=== PATIENT | male | born 1975 | race Two or more races ===

== ENCOUNTER 2021-06-20 03:48 | Emergency (ER) | payer OTHER ==
[2021-06-20] MEDS ORDERED: Diphtheria,Pertussis(Acell),Tetanus Vaccine 0.5 ML Syringe IM ONE (04:04)
[2021-06-20] MEDS ORDERED: Lidocaine 1% 10 ML MDV INJECT ONE (04:04)
--- NOTE | 2021-06-20 04:08 | EDM.PDOC ---
ED HPI GENERAL MEDICAL PROBLEM - General Chief Complaint: Laceration Stated Complaint: RIGHT INDEX FINGER INJURY Time Seen by Provider: 06/20/21 03:49 - History of Present Illness INITIAL COMMENTS - FREE TEXT/NARRATIVE: 45-year-old male no relevant past medical history presents immediately after a crush injury at work. Patient was at work and a section of pipe fell onto the proximal phalanx of his right index finger. He is right-handed. He cannot recall his last tetanus. He states he is able to move it some. He denies any other injury. Pain is moderate. Left Finger-Index Pain Score (Numeric/FACES): 9 - Related Data Allergies Allergy/AdvReac Type Severity Reaction Status Date / Time No Known Allergies Allergy Verified 06/20/21 04:03 Home Meds: Home Meds . [No Known Home Meds] 06/20/21 [History] ED ROS GENERAL - Review of Systems Review Of Systems: See Below Free Text/Narrative/Comment: General: No fever. Musculoskeletal: Per HPI Neurologic: No headache. ED EXAM, SKIN/RASH Exam: See Below Text/Narrative:: General Appearance: No acute distress, appears comfortable Skin: No rash HEENT: Normocephalic/atraumatic, sclera anicteric, mucous membranes moist Musculoskeletal: 2+ right radial pulse clear shortening and deformity of the proximal phalanx of the right index finger distal digit is neurovascularly intact no subungual hematoma there is a 2 cm laceration over the area of suspected fracture on the dorsal aspect of the right index finger. Tendon exam appears intact on initial assessment Neurologic: Awake, alert, no obvious deficits, moving all extremities Psychiatric: Appropriate, cooperative ED SKIN PROCEDURES - Additional/Other Procedure(s) Other (Free Text) Procedure(s): Laceration Repair Procedure Location: Right index finger Length: 1.5 cm Suture size and type: 5-0 nylon Number of sutures: 4 Complexity: Simple Time out: Yes, confirmed patient, place, procedure correct Consent: Verbal Suture technique: Simple interrupted Procedure: The wound was irrigated copiously with normal saline mixed with Betadine under pressure. Close inspection revealed no evidence for retained foreign bodies and no tendon violation. Anesthesia was achieved using lidocaine without epinephrine. Sutures were placed using the above technique with approximation of the wound edges. Sterile dressing was applied to the closed wound. Complications: None Performed by: Bret Love MD Closed reduction of fractured second proximal phalanx: Traction countertraction was used to pull the finger out to length finger was then splinted with a metal finger splint that had been well-padded along the palmar aspect of the finger extending into the mid hand patient tolerated the procedure well the digit was neurovascularly intact following the procedure Course - Vital Signs Last Recorded V/S: Last Vital Signs Temp 97.5 F 06/20/21 04:00 Pulse 79 06/20/21 04:00 Resp 20 06/20/21 04:00 BP 126/58 L 06/20/21 04:00 Pulse Ox 95 06/20/21 04:00 - Orders/Labs/Meds Orders: Active Orders 24 hr Category Date Time Status Vaccines to be Administered [RC] PER UNIT ROUTINE Care 06/20/21 04:04 Active Meds: Medications Discontinued Medications Generic Name Dose Route Start Last Admin Trade Name Freq PRN Reason Stop Dose Admin Diphtheria/Tetanus/Acell Pertussis 0.5 ml 06/20/21 04:04 06/20/21 04:19 Diphtheria,Pertussis(Acell),Tetanus Vaccine 0.5 Ml Syringe IM 06/20/21 04:05 0.5 ml .ONCE ONE Administration Ceftriaxone Sodium 1 gm/ 4 mls @ 4 mls/sec 06/20/21 04:28 06/20/21 04:40 Lidocaine HCl IM 06/20/21 04:29 4 mls/sec ONETIME ONE Administration Lidocaine HCl 10 ml 06/20/21 04:04 06/20/21 04:21 Lidocaine 1% 10 Ml Mdv INJECT 06/20/21 04:05 Not Given ONETIME ONE Lidocaine HCl 10 ml 06/20/21 04:09 06/20/21 04:20 Lidocaine 1% 5 Ml Sdv INJECT 06/20/21 04:10 10 ml ONETIME ONE Administration Departure - Departure Time of Disposition: 05:12 Disposition: Home, Self-Care 01 Condition: Good Clinical Impression: Finger fracture, right, Finger laceration - Discharge Information *PRESCRIPTION DRUG MONITORING PROGRAM REVIEWED*: Not Applicable *COPY OF PRESCRIPTION DRUG MONITORING REPORT IN PATIENT VINAYAK: Not Applicable Instructions: Finger Fracture, Adult Forms: ED Department Discharge Additional Instructions: It is very important that you were seen by the hand surgeon in [place] later today. I would plan to be in [place] this morning. I recommend starting to call the clinic at around 8 AM. The contact information is listed below. The surgeon who I spoke to is named Dr. Amin. Dr. Amin [phone] [place], [place] [address] [place] [address] Please keep the dressing in place until he was seen by the hand surgeon. The following information is given to patients seen in the emergency department who are being discharged to home. This information is to outline your options for follow-up care. We provide all patients seen in our emergency department with a follow-up referral. The need for follow-up, as well as the timing and circumstances, are variable depending upon the specifics of your emergency department visit. If you don't have a primary care physician on staff, we will provide you with a referral. We always advise you to contact your personal physician following an emergency department visit to inform them of the circumstance of the visit and for follow-up with them and/or the need for any referrals to a consulting specialist. The emergency department will also refer you to a specialist when appropriate. This referral assures that you have the opportunity for follow-up care with a specialist. All of these measure are taken in an effort to provide you with optimal care, which includes your follow-up. Under all circumstances we always encourage you to contact your private physician who remains a resource for coordinating your care. When calling for follow-up care, please make the office aware that this follow-up is from your recent emergency room visit. If for any reason you are refused follow-up, please contact the [facility] Emergency Department at and asked to speak to the emergency department charge nurse. Sepsis Event Note (ED) - Evaluation Sepsis Screening Result: No Definite Risk - Focused Exam Vital Signs: Vital Signs Temp Pulse Resp BP Pulse Ox 06/20/21 04:00 97.5 F 79 20 126/58 L 95 - My Orders Last 24 Hours: My Active Orders 06/20/21 04:04 Vaccines to be Administered [RC] PER UNIT ROUTINE - Assessment/Plan Last 24 Hours: My Active Orders 06/20/21 04:04 Vaccines to be Administered [RC] PER UNIT ROUTINE Assessment:: 45-year-old male presents with crush injury to the right index finger I suspect open fracture x-rays pending we will perform digital block irrigate copiously with sterile saline and Betadine and will likely need to discuss with hand surgery regarding follow-up. 0510: Patient discussed in full with Dr. Amin the hand surgeon in [facility]. Agrees with plan for manual reduction with splinting and repair recommends coverage with ceftriaxone followed by Keflex. The patient will be seen by the hand surgeon in clinic later today. The importance of following up with a hand surgeon this morning was discussed and understood the patient's boss is committed to getting the patient up to the hand surgery clinic in [place]. Relevant address and phone numbers been provided. My encounter was conducted with an audio sign language interpreter
[2021-06-20] MEDS ORDERED: cefTRIAXone 1 GM in Lidocaine 1% 4 ML IM ONE (04:28)
--- NOTE | 2021-06-20 04:28 | CR ---
Indication: Injury and pain Technique: Right 2nd finger 3 views Comparison: None Findings/Impression: Bones: Acute minimally comminuted and angulated fractures present of the proximal phalanx of the right 2nd finger. No other osseous abnormality. Joint spaces: Unremarkable. Soft tissues: Soft tissue injury and swelling adjacent to the fracture. Dictated by Nakul Meadows MD @ 06/20/2021 4:27:[address] Nakul Meadows @ Jun 20 2021 4:27AM
== END 2021-06-20 05:24 | disposition home or self-care (01) ==
LOC: MW.ED 03:48
DX: S62.610A Displaced fracture of proximal phalanx of right index finger, initial encounter for closed fracture (principal); Z23 Encounter for immunization; W23.0XXA Caught, crushed, jammed, or pinched between moving objects, initial encounter; Y99.0 Civilian activity done for income or pay
CPT/HCPCS: 12001; 26725; 73140; 90471; 90715; 96372; 99283; J0696

== ENCOUNTER 2021-10-10 17:11 | Emergency (ER) | payer SELFPAY ==
[2021-10-10] MEDS ORDERED: Alum Hydro/Mag Hydro/Simeth XS 15 ML, Metoclopramide 5 MG, Lidocaine 2% 5 ML PO ONE ×3 (17:19)
--- NOTE | 2021-10-10 17:23 | EDM.PDOC ---
ED HPI GENERAL MEDICAL PROBLEM - General Chief Complaint: Respiratory Problem Stated Complaint: COVID POS, DIFFICULTY BREATHING Time Seen by Provider: 10/10/21 17:11 Source of Information: Reports: Patient History Limitations: Reports: No Limitations - History of Present Illness INITIAL COMMENTS - FREE TEXT/NARRATIVE: HISTORY AND PHYSICAL: History of present illness: Patient is a 46-year-old male who presents to the emergency room body aches, epigastric pain, cough and shortness of breath x3 days. He was diagnosed with COVID-19 2 days ago. Patient denies any fever, chills, headache, change in vision, syncope or near syncope. Denies any chest pain, back pain, nausea, vomiting, diarrhea, constipation or dysuria. Has not noted any blood in urine or stool. Patient has been eating and drinking appropriately. Patient states he has history of pneumonia and pre-diabetes. Review of systems: As per history of present illness and below otherwise all systems reviewed and negative. Past medical history: As per history of present illness and as reviewed below otherwise noncontributory. Surgical history: As per history of present illness and as reviewed below otherwise noncontributory. Social history: See social history for further information Family history: As per history of present illness and as reviewed below otherwise noncontributory. Physical exam: General: Well developed and well nourished 46 year old male. Alert and orientated x 3. Nontoxic in appearance and in no acute distress. Vital signs are stable and have been reviewed by me. Nursing notes were reviewed. HEENT: Atraumatic, normocephalic, pupils equal and reactive bilaterally, negative for conjunctival pallor or scleral icterus, mucous membranes moist, TMs normal bilaterally, throat clear, neck supple, nontender, trachea midline. No drooling or trismus noted. No meningeal signs. No hot potato voice noted. Lungs: Clear to auscultation bilaterally. No wheezes, rales, or rhonchi. Chest nontender. Normal work of breathing, no accessory muscles used. Heart: S1S2, regular rate and rhythm without overt murmur, gallops, or rubs. No JVD. No peripheral edema Abdomen: Soft, nondistended, nontender. Normoactive bowel sounds. Negative for masses or costovertebral tenderness. Skin: Intact, warm, dry. No lesions or rashes noted. Hematologic: No petechiae or purpra. Mucosa appropriate color and normal nail bed color and refill. Extremities: Atraumatic, moves all extremities per self without difficulty or deficits, negative for cords or calf pain. Neurovascular unremarkable. Neuro: Awake, alert, oriented. Cranial nerves II through XII unremarkable. Cerebellum unremarkable. Motor and sensory unremarkable throughout. Exam nonfocal. Psychiatric: Mood and affect are appropriate. Normal thought process. Answering questions appropriately. Please note that the patient was seen and evaluated during the 2019 SARS-CoV-2 novel coronavirus pandemic period. Community viral transmission is ongoing at time of this encounter and the emergency department is operating under pandemic response procedures. Medical Decision Making: Patient is a 46-year-old male with known COVID-19 who presents to the emergency room with complaints of epigastric pain, shortness of breath and cough. Patient states he has a history of pneumonia and is concerned he may have it concurrently with his COVID-19 diagnosis. Patient's lab work is unremarkable. Chest x-ray shows no acute findings. His oxygen saturation has been above 97% on room air. EKG is within normal limits and no concern for STEMI. Patient did feel improved after the GI cocktail. Symptoms are likely due to his recent COVID-19 diagnosis. I have talked with the patient about today's findings, in addition to providing specific details for plan of care. Reassessment at the time of disposition demonstrates that the patient is in no acute distress. The patient is stable for discharge, counseling was provided and we discussed in great detail signs and symptoms that would prompt them to return to the Emergency Department. Medication, follow up and supportive care measures were reviewed and discussed. Voices understanding and is agreeable to plan of care. Denies any further questions or concerns at this time. Diagnostics: CBC, CMP, Troponin, EKG, CXR Therapeutics: GI cocktail Prescription: None Impression: COVID-19 Plan: 1. You were evaluated today on an emergent basis. Your lab work and Chest X-ray is normal. Symptoms are liklely related to your COVID diagnosis. Your vital signs and oxygen saturation are well enough that you were able to monitor your symptoms at home. Continue to monitor for trouble breathing, new confusion or inability to arouse, bluish lips or face or any of the other symptoms we discussed -if this occurs please return to the emergency room immediately. 2. Please self quarantine until cleared by [facility] Department. Inform any persons that you have been in contact with since you started becoming symptomatic that you have tested positive; they should be made aware and take the appropriate steps as needed. 3. You can take NyQuil during the evening to help get a restful night sleep. May alternate Tylenol and ibuprofen as needed for pain and fever management. 4. The [facility] will be calling you and following up with you. The [facility] TrepUp Hotline phone number , They are open Friday - Friday 7am - 7pm. Follow up with your primary care provider for re-evaluation as directed. Definitive disposition and diagnosis as appropriate pending reevaluation and review of above. Duration: Day(s): epigastric Pain Score (Numeric/FACES): 10 - Related Data Allergies Allergy/AdvReac Type Severity Reaction Status Date / Time No Known Allergies Allergy Verified 10/10/21 17:14 Home Meds: Home Meds . [No Known Home Meds] 06/20/21 [History] Past Medical History HEENT History: Reports: None Cardiovascular History: Reports: None Respiratory History: Reports: Pneumonia, Recurrent Gastrointestinal History: Reports: None Genitourinary History: Reports: None Musculoskeletal History: Reports: None Neurological History: Reports: None Psychiatric History: Reports: None Endocrine/Metabolic History: Reports: Other (See Below) Other Endocrine/Metabolic History: pre-diabetic Hematologic History: Reports: None Immunologic History: Reports: None Oncologic (Cancer) History: Reports: None Dermatologic History: Reports: None - Infectious Disease History Infectious Disease History: Reports: Chicken Pox - Past Surgical History Head Surgeries/Procedures: Reports: None HEENT Surgical History: Reports: None Cardiovascular Surgical History: Reports: None Respiratory Surgical History: Reports: None GI Surgical History: Reports: None Male Surgical History: Reports: None Endocrine Surgical History: Reports: None Neurological Surgical History: Reports: None Musculoskeletal Surgical History: Reports: None Oncologic Surgical History: Reports: None Dermatological Surgical History: Reports: None Social & Family History - Family History Family Medical History: No Pertinent Family History - Tobacco Use Years of Tobacco use: 15 Packs/Tins Daily: 0.5 - Caffeine Use Caffeine Use: Reports: None - Recreational Drug Use Recreational Drug Use: No ED ROS GENERAL - Review of Systems Review Of Systems: Comprehensive ROS is negative, except as noted in HPI. ED EXAM, GENERAL - Physical Exam Exam: See Below (See dictation) Course - Vital Signs Last Recorded V/S: Last Vital Signs Temp 99.1 F 10/10/21 17:12 Pulse 95 10/10/21 17:12 Resp 18 10/10/21 17:12 BP 152/8 H 10/10/21 17:12 Pulse Ox 94 L 10/10/21 17:12 - Orders/Labs/Meds Labs: Laboratory Tests 10/10/21 10/10/21 10/10/21 Range/Units 17:30 17:30 17:47 WBC 4.88 (4.0-11.0) K/uL RBC 4.68 (4.50-5.90) M/uL Hgb 14.3 (13.0-17.0) g/dL Hct 42.4 (38.0-50.0) % MCV 90.6 (80.0-98.0) fL MCH 30.6 (27.0-32.0) pg MCHC 33.7 (31.0-37.0) g/dL RDW Std Deviation 46.5 (28.0-62.0) fl RDW Coeff of Brandy 14 (11.0-15.0) % Plt Count 151 (150-400) K/uL MPV 9.70 (7.40-12.00) fL Neut % (Auto) 67.0 (48.0-80.0) % Lymph % (Auto) 19.5 (16.0-40.0) % [place] % (Auto) 13.3 (0.0-15.0) % Eos % (Auto) 0.0 (0.0-7.0) % Baso % (Auto) 0.2 (0.0-1.5) % Neut # (Auto) 3.3 (1.4-5.7) K/uL Lymph # (Auto) 1.0 (0.6-2.4) K/uL [place] # (Auto) 0.7 (0.0-0.8) K/uL Eos # (Auto) 0.0 (0.0-0.7) K/uL Baso # (Auto) 0.0 (0.0-0.1) K/uL Nucleated RBC % 0.0 /100WBC Nucleated RBCs # 0 K/uL Sodium 134 L (136-148) mmol/L Potassium 3.9 (3.5-5.1) mmol/L Chloride 99 (98-107) mmol/L Carbon Dioxide 27.5 (21.0-32.0) mmol/L BUN 12 (7.0-18.0) mg/dL Creatinine 0.8 (0.8-1.3) mg/dL Est Cr Clr Drug Dosing 109.02 mL/min Estimated GFR (MDRD) > 60.0 ml/min Glucose 128 H (74-106) mg/dL Calcium 7.9 L (8.5-10.1) mg/dL Total Bilirubin 0.2 (0.2-1.0) mg/dL AST 37 (15-37) IU/L ALT 48 (14-63) IU/L Alkaline Phosphatase 73 (46-116) U/L Troponin I < 0.050 (0.000-0.056) ng/mL Total Protein 7.1 (6.4-8.2) g/dL Albumin 3.2 L (3.4-5.0) g/dL Globulin 3.9 (2.6-4.0) g/dL Albumin/Globulin Ratio 0.8 L (0.9-1.6) Urine Color YELLOW Urine Appearance CLEAR Urine pH 7.5 (5.0-8.0) Ur Specific [place] 1.020 (1.001-1.035) Urine Protein 30 H (NEGATIVE) mg/dL Urine Glucose (UA) NEGATIVE (NEGATIVE) mg/dL Urine Ketones TRACE H (NEGATIVE) mg/dL Urine Occult Blood NEGATIVE (NEGATIVE) Urine Nitrite NEGATIVE (NEGATIVE) Urine Bilirubin NEGATIVE (NEGATIVE) Urine Urobilinogen 1.0 (<2.0) EU/dL Ur Leukocyte Esterase NEGATIVE (NEGATIVE) Urine RBC 0-1 (0-2/HPF) Urine WBC 0-2 (0-5/HPF) Ur Epithelial Cells RARE (NONE-FEW) Urine Bacteria RARE (NEGATIVE) Meds: Medications Discontinued Medications Generic Name Dose Route Start Last Admin Trade Name Freq PRN Reason Stop Dose Admin Alum [place]/Mag [place]/Simeth XS 0 ml 10/10/21 17:19 10/10/21 17:43 15 ml/ Metoclopramide HCl 5 PO 10/10/21 17:20 50 each mg/ Lidocaine HCl 5 ml ONETIME ONE Administration Departure - Departure Time of Disposition: 18:22 Disposition: Home, Self-Care 01 Clinical Impression: COVID-19 - Discharge Information Instructions: 10 Things You Can Do to Manage Your COVID-19 Symptoms at Home - [facility] (05/04/2021) Referrals: PCP,None [Primary Care Provider] - Forms: ED Department Discharge Additional Instructions: The following information is given to patients seen in the emergency department who are being discharged to home. This information is to outline your options for follow-up care. We provide all patients seen in our emergency department with a follow-up referral. The need for follow-up, as well as the timing and circumstances, are variable depending upon the specifics of your emergency department visit. If you don't have a primary care physician on staff, we will provide you with a referral. We always advise you to contact your personal physician following an emergency department visit to inform them of the circumstance of the visit and for follow-up with them and/or the need for any referrals to a consulting specialist. The emergency department will also refer you to a specialist when appropriate. This referral assures that you have the opportunity for follow-up care with a specialist. All of these measure are taken in an effort to provide you with optimal care, which includes your follow-up. Under all circumstances we always encourage you to contact your private physician who remains a resource for coordinating your care. When calling for follow-up care, please make the office aware that this follow-up is from your recent emergency room visit. If for any reason you are refused follow-up, please contact the [facility] Emergency Department at and asked to speak to the emergency department charge nurse. [facility] Primary Care [address] [place] [id number] [address] Thank you for choosing the [facility] emergency department in [place] for your medical needs today. It was a pleasure caring for you. Today you were seen in the emergency department for COVID -19 symptoms. 1. You were evaluated today on an emergent basis. Your lab work and Chest X-ray is normal. Symptoms are likely related to your COVID diagnosis. Your vital signs and oxygen saturation are well enough that you were able to monitor your symptoms at home. Continue to monitor for trouble breathing, new confusion or inability to arouse, bluish lips or face or any of the other symptoms we discussed -if this occurs please return to the emergency room immediately. 2. Please self quarantine until cleared by [facility] Department. Inform any persons that you have been in contact with since you started becoming symptomatic that you have tested positive; they should be made aware and take the appropriate steps as needed. 3. You can take NyQuil during the evening to help get a restful night sleep. May alternate Tylenol and ibuprofen as needed for pain and fever management. 4. The [facility] will be calling you and following up with you. The [facility] COVID 19 Hotline phone number , They are open Friday - Friday 7am - 7pm. Follow up with your primary care provider for re-evaluation as directed. Sepsis Event Note (ED) - Evaluation Sepsis Screening Result: No Definite Risk - Focused Exam Vital Signs: Vital Signs Temp Pulse Resp BP Pulse Ox 10/10/21 17:12 99.1 F 95 18 152/8 H 94 L
--- NOTE | 2021-10-10 17:49 | CR ---
INDICATION: cough/sob TECHNIQUE: Chest 1 view. COMPARISON: None. FINDINGS: Cardiovascular and mediastinum: Heart size and vasculature are normal in caliber and appearance. Mediastinum is within normal limits. Lungs and pleural space: Lungs are clear. No sign of infiltrate or mass. No sign of pleural effusion. No pneumothorax. Bones and soft tissues: No significant findings. IMPRESSION: Unremarkable chest. Dictated by: Tello Jade MD @ 10/10/2021 17:48:06 (Electronically Signed)
--- NOTE | 2021-10-10 17:55 | PCM.EKG ---
#1 Interpretation EKG Date: 10/10/21 Time: 17:17 Rhythm: NSR Rate (Beats/Min): 92 [place]: Normal P-Wave: Present QRS: Normal ST-T: Normal QT: Normal KS/PQ Interval: 150 Comparison: NA - No Prior EKG EKG Interpretation Comments: no acute ischemic changes
[2021-10-10 18:18] LABS: BLOOD UREA NITROGEN,BUN 12 mg/dL (7.0-18.0); CARBON DIOXIDE,CO2 27.5 mmol/L (21.0-32.0); CHLORIDE,CL 99 mmol/L (98-107); GLUCOSE RANDOM 128 mg/dL (74-106); POTASSIUM,K 3.9 mmol/L (3.5-5.1); SODIUM,NA 134 mmol/L (136-148)
[2021-10-10] MEDS ORDERED: Albuterol 8 GM Inhaler INH ONE (18:27)
== END 2021-10-10 18:39 | disposition home or self-care (01) ==
LOC: MW.ED 17:11
DX: U07.1 COVID-19 (principal); Z72.0 Tobacco use
CPT/HCPCS: 36415; 71045; 80053; 81001; 84484; 85025; 93005; 99285; A9270

== ENCOUNTER 2024-09-09 18:08 | Emergency (ER) | payer BC, OTHER ==
[2024-09-09] MEDS: Lidocaine 2% Viscous Solution 15 ML UD PO ONE (18:35)
[2024-09-09] MEDS: Benzocaine 20% Topical Spray UD MUCMEM ONE (18:35)
[2024-09-09] MEDS: Amoxicillin/Clavulanate K 875-125 MG Tab PO ONE (18:36)
== END 2024-09-09 18:38 | disposition home or self-care (01) ==
LOC: MW.ED 18:08
DX: K04.7 Periapical abscess without sinus (principal); Z75.8 Other problems related to medical facilities and other health care
CPT/HCPCS: 99283; A9270; 99282